=== PATIENT | male | born 1980 | race Caucasian/White ===

== ENCOUNTER → 2022-11-10 | Outpatient (CLI) | payer SELFPAY ==
--- NOTE | 2022-11-10 09:00 | ECHOD_ITS ---
Reason For Study: MURMUR Procedure This was a 2D Doppler, Color Flow transthoracic echocardiogram. Exam performed in department. Left Ventricle Normal LV size. Left ventricular systolic function is normal. The estimated ejection fraction is 55 %. Normal diastology for age. No regional wall motion abnormalities noted. Right Ventricle Normal RV size. Normal systolic function. Atria Normal left atrium. Normal right atrium. Mitral Valve Normal mitral valve. Tricuspid Valve Normal tricuspid valve. Aortic Valve Trisinus/trileaflet aortic valve. Trivial aortic valve insufficiency. Pulmonic Valve Normal pulmonic valve. Great Vessels Normal aortic root. The pulmonary artery is normal size. Normal inferior vena cava. Pericardium/Pleural No pericardial effusion. MMode/2D Measurements & Calculations LVIDd: 5.1 cm IVSd: 1.2 cm Ao root diam: 3.2 cm LVIDs: 3.8 cm LVPWd: 0.99 cm FS: 26.4 % LAV(MOD-sp4): 45.0 ml LVAd ap4: 41.9 cm2 SV(MOD-sp4): 78.4 ml LVLd ap4: 9.4 cm EDV(MOD-sp4): 154.9 ml EDV(sp4-el): 159.3 ml LVAs ap4: 26.3 cm2 LVLs ap4: 7.6 cm ESV(MOD-sp4): 76.5 ml ESV(sp4-el): 77.2 ml EF(MOD-sp4): 50.6 % EF(sp4-el): 51.5 % SV(sp4-el): 82.1 ml LA A4 area: 15.8 cm2 LA dimension(2D): 3.8 cm RA A4 area: 19.6 cm2 Time Measurements MV dec time: 0.19 sec Doppler Measurements & Calculations MV E max magdaleno: 71.4 cm/sec Lat Peak E' Magdaleno: 9.2 cm/sec Med Peak E' Magdaleno: 7.3 cm/sec MV A max magdaleno: 42.6 cm/sec E/E' lat: 7.7 E/E' med: 9.9 MV E/A: 1.7 MV V2 max: 63.0 cm/sec Ao V2 max: 91.3 cm/sec MV max P.6 mmHg MV dec slope: 386.0 cm/sec2 Ao max P.3 mmHg MV V2 mean: 41.0 cm/sec Ao V2 mean: 63.6 cm/sec MV mean P.75 mmHg Ao mean P.8 mmHg MV V2 VTI: 29.6 cm Ao V2 VTI: 20.4 cm AV (velocity ratio): 0.88 LV V1 max: 79.0 cm/sec PA V2 max: 95.8 cm/sec LV V1 max P.5 mmHg PA V2 mean: 68.7 cm/sec LV V1 mean P.4 mmHg LV V1 mean: 55.1 cm/sec LV V1 VTI: 17.8 cm ECHO/Echo Complete Interpretation Summary Normal LV size. Left ventricular systolic function is normal. The estimated ejection fraction is 55 %. Doppler studies, color flow and spectral analysis demonstrates no significant r egurgitant or stenotic jets. Ordering Physician: Elle Gan Referring Physician: Elle Gan Performed By: Fatimah Acosta RCS
== END | disposition home or self-care (01) ==
PROVIDERS: PCP Nurse Practitioner Primary Care; Referring Provider Nurse Practitioner Family; Visit Provider Nurse Practitioner Family
DX: R01.1 Cardiac murmur, unspecified (principal)
CPT/HCPCS: 93306